=== PATIENT | female | born 1945 | race African-American/Black ===

== ENCOUNTER 2016-11-18 07:05 | Day surgery (SDC) | payer BC, OTHER ==
[2016-11-15 13:00] LABS: HEMATOCRIT 35.5 % (36.0-48.0)
[2016-11-15 13:15] LABS: BUN (BLOOD UREA NITROGEN) 12 MG/DL (6-23); CALCIUM, SERUM 8.9 MG/DL (8.5-10.4); CHLORIDE, SERUM 104 MMOL/L (96-112); CO2 (CARBON DIOXIDE) 30 MMOL/L (24-34); CREATININE 0.89 MG/DL (0.55-1.02); GFR AFRICAN AMERICAN 75 ML/MIN (>=60); GFR NON AFRICAN AMERICAN 65 ML/MIN (>=60); GLUCOSE, SERUM 60 MG/DL (60-99); POTASSIUM, SERUM 4.1 MMOL/L (3.5-5.3); SODIUM, SERUM 143 MMOL/L (135-148)
[~2016-11-18 07:05] MED LIST: ACET500CAP PO; ASAB PO; BEN25 PO; BENTYL20 PO; CELEXA10 PO; CELEXA20 PO; CENTRUM PO; CYANO1000T PO; DIL2TAB PO; FOSAMAX70 MG PO; GLUCOPHAGE1000 MG PO; HALF81 PO; HYDROCODONE PO; ISORDIL10 PO; ISORDIL20 PO; LEVOTHYROXIN50 MCG PO; LORTAB 5 PO; MULTIPLE VIT PO; MULTIVIT/MIN PO; NABUMETONE750 MG PO; NEUR300 PO; NORCO1 TA1 PO; NOVOLOGMIX SC; OS500+D PO; PLAVIX PO; PR25 PO; PRILO PO; PRIN10 PO; PROTONIX PO; RANITIDINE300 MG PO; REG PO; SINGULAIR1 PO; SUCR PO; SYN.05 PO; ULTRAM50 PO; V5 PO; VICODINTAB PO; VITAMIN B-121000 MC1 PO; VITAMIN B-121000 MC1 SL; Vitamin B-12 PO; ZOCOR20 PO; ZOCOR40 PO; ZYRTEC ALLGY10 MG PO
[2017-04-19] MEDS ORDERED: NITROQUICK0.4 MG SL (10:01)
[2017-06-01] MEDS ORDERED: ENDOCET1 TAB PO (10:11)
[2017-06-01] MEDS ORDERED: ORPHENADRINE100 MG PO (10:12)
== END 2016-11-18 13:37 | disposition home or self-care (01) ==
LOC: SDC 07:05
PROVIDERS: Ophthalmology
PROC: 08RK3JZ Replacement of Left Lens with Synthetic Substitute, Percutaneous Approach (ICD-10-PCS; principal; 2016-11-18 09:15)
DX: H25.12 Age-related nuclear cataract, left eye (principal); G40.909 Epilepsy, unspecified, not intractable, without status epilepticus; I10 Essential (primary) hypertension; I25.10 Atherosclerotic heart disease of native coronary artery without angina pectoris; E03.9 Hypothyroidism, unspecified; E11.9 Type 2 diabetes mellitus without complications; Z88.5 Allergy status to narcotic agent; Z91.048 Other nonmedicinal substance allergy status; Z87.891 Personal history of nicotine dependence; M19.90 Unspecified osteoarthritis, unspecified site; Z90.710 Acquired absence of both cervix and uterus; K21.9 Gastro-esophageal reflux disease without esophagitis; E11.40 Type 2 diabetes mellitus with diabetic neuropathy, unspecified; F32.9 Major depressive disorder, single episode, unspecified; Z79.84 Long term (current) use of oral hypoglycemic drugs; Z79.899 Other long term (current) drug therapy
CPT/HCPCS: 80048; 82962; 85014; 85018; 93005; J2405

== ENCOUNTER 2016-12-30 06:23 | Day surgery (SDC) | payer BC, OTHER ==
[2016-12-27 10:24] LABS: HEMATOCRIT 34.9 % (36.0-48.0); HEMOGLOBIN 11.8 g/dL (12.0-16.0)
[2016-12-27 10:35] LABS: BUN (BLOOD UREA NITROGEN) 10 MG/DL (6-23); CALCIUM, SERUM 9.1 MG/DL (8.5-10.4); CHLORIDE, SERUM 107 MMOL/L (96-112); CO2 (CARBON DIOXIDE) 27 MMOL/L (24-34); CREATININE 0.77 MG/DL (0.55-1.02); GFR AFRICAN AMERICAN 89 ML/MIN (>=60); GFR NON AFRICAN AMERICAN 77 ML/MIN (>=60); GLUCOSE, SERUM 123 MG/DL (60-99); POTASSIUM, SERUM 4.3 MMOL/L (3.5-5.3); SODIUM, SERUM 142 MMOL/L (135-148)
[2017-04-19] MEDS ORDERED: NITROQUICK0.4 MG SL (10:01)
[2017-06-01] MEDS ORDERED: ENDOCET1 TAB PO (10:11)
[2017-06-01] MEDS ORDERED: ORPHENADRINE100 MG PO (10:12)
== END 2016-12-30 09:55 | disposition home or self-care (01) ==
LOC: SDC 06:23
PROVIDERS: Ophthalmology
PROC: 08RJ3JZ Replacement of Right Lens with Synthetic Substitute, Percutaneous Approach (ICD-10-PCS; principal; 2016-12-30 08:30)
DX: H25.11 Age-related nuclear cataract, right eye (principal); G47.33 Obstructive sleep apnea (adult) (pediatric); E89.0 Postprocedural hypothyroidism; K21.9 Gastro-esophageal reflux disease without esophagitis; E11.9 Type 2 diabetes mellitus without complications; Z88.8 Allergy status to other drugs, medicaments and biological substances; Z79.899 Other long term (current) drug therapy; Z99.89 Dependence on other enabling machines and devices; Z79.82 Long term (current) use of aspirin; Z79.891 Long term (current) use of opiate analgesic; Z79.4 Long term (current) use of insulin; Z96.652 Presence of left artificial knee joint; Z98.890 Other specified postprocedural states; Z98.42 Cataract extraction status, left eye
CPT/HCPCS: 80048; 82962; 85014; 85018; 93005; J2405; V2787

== ENCOUNTER 2017-05-21 15:27 | Emergency (ER) | payer BC, OTHER ==
[~2017-05-21 15:27] MED LIST changes: +NITROQUICK0.4 MG SL; +PROTONIXIV PO
== END 2017-05-21 19:25 | disposition home or self-care (01) ==
LOC: ER 15:27
DX: M54.12 Radiculopathy, cervical region (principal); G89.29 Other chronic pain; I25.2 Old myocardial infarction; Z95.5 Presence of coronary angioplasty implant and graft; Z88.6 Allergy status to analgesic agent; Z91.040 Latex allergy status; Z91.09 Other allergy status, other than to drugs and biological substances; Z79.82 Long term (current) use of aspirin; Z79.899 Other long term (current) drug therapy
CPT/HCPCS: 72050; 84484; 93005; 96374; 96375; 99285; J1170; J2360; J2405; J2930